=== PATIENT | male | born 1940 | race African-American/Black ===

== ENCOUNTER 2017-10-16 11:53 | Inpatient (IN) | payer MEDICARE ==
[~2017-10-16] VITALS: Ht 182.9 cm; Wt 81.6 kg
[2017-10-16] MEDS ORDERED: Sodium Chloride 500ML 500 ML IV ONE (12:03)
[2017-10-16 12:13] VITALS: BP 193/92
[2017-10-16 13:34] LABS: BASOPHILS % (AUTO) 2.3 % (0.0-2.0); EOSINOPHILS % (AUTO) 3.8 % (0.0-3.0); HEMATOCRIT 41.4 % (42.0-52.0); HEMOGLOBIN 13.8 G/DL (14.2-18.0); LYMPHOCYTES % (AUTO) 41.2 % (20.0-45.0); MEAN CORPUSCULAR VOLUME 92 FL (80-99); MONOCYTES % (AUTO) 7.8 % (1.0-10.0); NEUTROPHILS % (AUTO) 44.9 % (45.0-75.0); PLATELET COUNT 183 K/UL (150-450); RED BLOOD COUNT 4.51 M/UL (4.70-6.10); RED CELL DISTRIBUTION WIDTH 13.6 % (11.6-14.8); WHITE BLOOD COUNT 3.7 K/UL (4.8-10.8)
--- NOTE | 2017-10-16 13:35 | Diagnostic Imaging Report ---
Indication: Trauma, pain, status post fall Technique: spiral acquisitions obtained through the brain. Angled axial and coronal 5 x 5 mm slices were reconstructed. No IV contrast utilized. Radiation dose was minimized using automated exposure control Total dose length product 1400.72 mGycm. CTDIvol(s) 70.38 mGy Comparison: none FINDINGS: No acute hemorrhage or edema. No mass effect or midline shift. There is age-related enlargement of the ventricles and extra axial CSF spaces. There is periventricular deep white matter ischemic change. Normal toure-white differentiation. Visualized orbits are unremarkable. Visualized sinuses are unremarkable. Intact calvarium. IMPRESSION: Chronic and age-related changes. Negative for acute intracranial bleed or mass effect The CT scanner at [facility] is accredited by the [employer] and the scans are performed using protocols designed to limit radiation exposure to as low as reasonably achievable to attain images of sufficient resolution adequate for diagnostic evaluation
--- NOTE | 2017-10-16 13:39 | Diagnostic Imaging Report ---
Indication: Reason For Exam: SYNCOPE Technique: One view of the chest Comparison: Findings: Lungs and pleural spaces are clear. Heart size is normal . There are degenerative changes of the thoracic spine Impression: No acute process
--- NOTE | 2017-10-16 13:39 | Diagnostic Imaging Report ---
Indication: ,, Pain, status post fall Technique: Spiral acquisitions obtained through the cervical spine. No IV contrast utilized. Multiplanar reconstructions were generated. Total dose length product 313.49 mGycm. CTDIvol(s) 14.12 mGy. Dose reduction achieved using automated exposure control. Comparison: none Findings: There is slight straightening of the normal cervical lordosis. There is very slight posterior offset of C4 on C5 and C5 on C6. Otherwise normal bony alignment. No acute fractures. No dislocations. There is degenerative narrowing of the anterior atlantoaxial joint and proliferative changes of the posteriorly. At C3-4, posterior osteophytes result in significant narrowing of the spinal canal. There is mild right and severe left neural foraminal stenosis. At C4-5, posterior osteophytes result in narrowing of the spinal canal, at least moderate, particularly in the region of the right lateral recess. There is severe right and moderate to severe left neural foraminal stenosis. At C5-C6, posterior osteophytes result in mild narrowing the spinal canal. There is severe narrowing of the right neural foramen. At the remaining disc levels, no significant disc bulge or protrusion, spinal stenosis, or neural foraminal stenosis. The included extraspinal soft tissues demonstrate a bilateral subcentimeter lower pole thyroid nodules Impression: No acute bony trauma Extensive degenerative changes, as detailed above Bilateral lower pole subcentimeter thyroid nodules. No further follow-up necessary The CT scanner at [facility] is accredited by the [employer] and the scans are performed using protocols designed to limit radiation exposure to as low as reasonably achievable to attain images of sufficient resolution adequate for diagnostic evaluation.
[2017-10-16 13:57] LABS: ANION GAP 5 mmol/L (5-15); BLOOD UREA NITROGEN 19 mg/dL (7-18); CALCIUM 9.3 MG/DL (8.5-10.1); CARBON DIOXIDE 27 MMOL/L (21-32); CHLORIDE 106 MMOL/L (98-107); CREATININE 1.7 MG/DL (0.55-1.30); SODIUM 138 MMOL/L (136-145)
[2017-10-16 14:15] LABS: ALANINE AMINOTRANSFERASE 14 U/L (12-78); ALBUMIN 3.7 G/DL (3.4-5.0); ALKALINE PHOSPHATASE 55 U/L (46-116); ASPARTATE AMINO TRANSFERASE 18 U/L (15-37); BILIRUBIN,TOTAL 0.9 MG/DL (0.2-1.0); CKMB 6.3 NG/ML (0.0-3.6); CREATINE KINASE 207 U/L (26-308)
[2017-10-16 14:43] VITALS: BP 139/84
[2017-10-16 15:20] LABS: APPEARANCE,URINE CLEAR; BILIRUBIN, URINE NEGATIVE (NEGATIVE); COLOR,URINE PALE YELLOW; GLUCOSE, URINE (UA) NEGATIVE (NEGATIVE); KETONES,URINE 2+ (NEGATIVE); LEUKOCYTE ESTERASE ,URINE NEGATIVE (NEGATIVE); NITRITE,URINE NEGATIVE (NEGATIVE); PH,URINE 7 (4.5-8.0); PROTEIN,URINE 1+ (NEGATIVE); UROBILINOGEN,URINE NORMAL MG/DL (0.0-1.0)
[2017-10-16 19:00] VITALS: BP 138/93
[2017-10-16 20:04] VITALS: BP 138/93
[2017-10-16] MEDS: Heparin 5000 units/ml inj SUBQ SCH (21:42)
[2017-10-17] VITALS (8 sets, daily range): BP systolic 118–199; BP diastolic 67–103
--- NOTE | 2017-10-17 04:00 | History and Physical Report ---
DATE OF ADMISSION: 10/16/2017 REASON FOR ADMISSION: Syncope. HISTORY OF PRESENT ILLNESS: This is a 76-year-old male, admitted with syncopal episode. The patient was seen, evaluated, and was required admission. In the emergency room, the patient was admitted to telemetry after full evaluation. Troponin level was borderline elevated. The patient also noted renal impairment. The care discussed and reviewed. The patient denies any chest pain. Denies any radiation of pain. Denies any shortness of breath. The patient's events are fairly acute in nature. PAST MEDICAL HISTORY: Fairly benign overall. The patient's history reviewed. The patient does have a history of closed head injury. No other significant complaints at this time. The patient has no history of strokes and no history of cardiac disease. MEDICATIONS: Reviewed. ALLERGIES: Reviewed. SOCIAL HISTORY: Essentially negative. The patient is ambulatory and is independent. Currently, nonsmoker and nondrinker. REVIEW OF SYSTEMS: All 10 points reviewed and otherwise negative. PHYSICAL EXAMINATION: GENERAL: A well-developed male, comfortable, overall. VITAL SIGNS: Blood pressure 132/84, 74 14, 99% saturation, and temperature is 96.6. HEENT: Fairly negative. Extraocular muscles are intact. Oropharynx is moist. Pupils are equal. LUNGS: Lungs are clear. No rhonchi or wheezes. CARDIAC: Normal S1 and S2. Regular rate and rhythm without murmurs, rubs, or gallops. ABDOMEN: Soft, nontender, and nondistended. EXTREMITIES: No cyanosis, clubbing, or edema. NEUROLOGIC: Grossly nonfocal. Cranial nerves are essentially intact. LABORATORY DATA: Reviewed. BUN 19 and creatinine 1.7. Troponin 0.144. White cell count is 3.7, hematocrit 41, and platelets are 183,000. IMPRESSION: Syncope with essentially negative cervical spine CT, evidence of possible chronic renal insufficiency, negative head CT, and mild leukopenia. RECOMMENDATIONS: 1. Intravenous hydration. 2. Echo carotid. 3. Cardiac evaluation. 4. PT evaluation. 5. Aspirin daily. 6. Stabilize and monitor telemetry. 7. Serial troponins. 8. Discharge once cleared. Jorge Hammer M.D. DR: PAUL JOB#: [id number] CC: CHANI
--- NOTE | 2017-10-17 08:24 | General Progress Note ---
Assessment/Plan Assessment/Plan Syncope chronic renal insufficiency, mild leukopenia. RECOMMENDATIONS: 1. Intravenous hydration. 2. Echo carotid. pending 3. Cardiac evaluation. appreciated 4. PT evaluation. 5. Aspirin daily. 6. Stabilize and monitor telemetry. 7. Serial troponins. and check TSH 8. Discharge once cleared. impression, plan, and exam edited and reviewed in detail care discussed with RN Subjective Allergies: Coded Allergies: No Known Allergies (Unverified , 10/16/17) Subjective care noted and reviewed comfortable no distress tele noted Objective Last 24 Hour Vital Signs Date Time Temp Pulse Resp B/P (MAP) Pulse Ox O2 Delivery O2 Flow Rate FiO2 10/17/17 04:00 97.2 66 16 122/81 99 Room Air 10/17/17 04:00 59 10/17/17 00:00 71 10/17/17 00:00 97.2 60 18 120/76 99 Room Air 10/16/17 20:04 97.2 88 18 138/93 98 10/16/17 20:00 81 10/16/17 19:00 97.2 88 18 138/93 98 Room Air 10/16/17 16:00 87 10/16/17 14:55 97.6 99 16 139/84 98 Room Air 10/16/17 14:45 97.6 10/16/17 14:43 99 16 139/84 98 Room Air 10/16/17 14:08 183/108 10/16/17 12:13 64 16 193/92 98 Room Air 10/16/17 12:00 97.5 71 16 164/98 98 Room Air Intake and Output 10/16/17 10/17/17 19:00 07:00 Intake Total 150 ml 220 ml Output Total 400 ml Balance 150 ml -180 ml Intake Oral 150 ml 120 ml IV Total 100 ml Output Urine Total 400 ml # Voids 2 Laboratory Tests 10/16/17 12:41: White Blood Count 3.7L, Red Blood Count 4.51L, Hemoglobin 13.8L, Hematocrit 41.4L, Mean Corpuscular Volume 92, Mean Corpuscular Hemoglobin 30.7, Mean Corpuscular Hemoglobin Concent 33.4, Red Cell Distribution Width 13.6, Platelet Count 183, Mean Platelet Volume 7.3, Neutrophils (%) (Auto) 44.9L, Lymphocytes ( %) (Auto) 41.2, Monocytes (%) (Auto) 7.8, Eosinophils (%) (Auto) 3.8H, Basophils (%) (Auto) 2.3H, Sodium Level 138, Potassium Level 5.0, Chloride Level 106, Carbon Dioxide Level 27, Anion Gap 5, Blood Urea Nitrogen 19H, Creatinine 1.7H, Estimat Glomerular Filtration Rate , Glucose Level 136H, Calcium Level 9.3, Total Bilirubin 0.9, Aspartate Amino Transf (AST/SGOT) 18, Alanine Aminotransferase (ALT/SGPT) 14, Alkaline Phosphatase 55, Total Creatine Kinase 207, Creatine Kinase MB 6.3H, Creatine Kinase MB Relative Index 3.0, Troponin I 0.144H, Total Protein 7.4, Albumin 3.7, Globulin 3.7, Albumin/ Globulin Ratio 1.0, Lipase 53L 10/16/17 15:09: Urine Color Pale yellow, Urine Appearance Clear, Urine pH 7, Urine Specific [place] 1.010, Urine Protein 1+H, Urine Glucose (UA) Negative, Urine Ketones 2+H , Urine Occult Blood 2+H, Urine Nitrite Negative, Urine Bilirubin Negative, Urine Urobilinogen Normal, Urine Leukocyte Esterase Negative, Urine RBC 5-10H, Urine WBC 0-2, Urine Squamous Epithelial Cells None, Urine Bacteria None Height (Feet): 6 Height (Inches): 0.00 Weight (Pounds): 180 Objective WDWN NAD clear breath sounds bilaterally without rhonchi or wheeze [id number] without MRG NABS nontender no HSM no CCE nonfocal alert and oriented x 3 CLAUDIA FAULKNER Oct 17, 2017 08:24
[2017-10-17] MEDS: Aspirin EC 81mg tab ORAL SCH (09:22)
[2017-10-17] MEDS: Heparin 5000 units/ml inj SUBQ SCH ×2 (09:23→20:54)
[2017-10-17 09:58] LABS: BASOPHILS % (AUTO) 2.2 % (0.0-2.0); EOSINOPHILS % (AUTO) 3.5 % (0.0-3.0); HEMATOCRIT 38.3 % (42.0-52.0); HEMOGLOBIN 12.7 G/DL (14.2-18.0); LYMPHOCYTES % (AUTO) 41.3 % (20.0-45.0); MEAN CORPUSCULAR VOLUME 92 FL (80-99); MONOCYTES % (AUTO) 9.1 % (1.0-10.0); PLATELET COUNT 193 K/UL (150-450); RED BLOOD COUNT 4.15 M/UL (4.70-6.10); RED CELL DISTRIBUTION WIDTH 13.5 % (11.6-14.8); WHITE BLOOD COUNT 4.1 K/UL (4.8-10.8)
[2017-10-17 10:43] LABS: ALANINE AMINOTRANSFERASE 13 U/L (12-78); ALBUMIN 3.3 G/DL (3.4-5.0); ALBUMIN/GLOBULIN RATIO 1.1 (1.0-2.7); ALKALINE PHOSPHATASE 51 U/L (46-116); ANION GAP 7 mmol/L (5-15); ASPARTATE AMINO TRANSFERASE 20 U/L (15-37); BILIRUBIN,TOTAL 0.6 MG/DL (0.2-1.0); BLOOD UREA NITROGEN 20 mg/dL (7-18); CALCIUM 8.5 MG/DL (8.5-10.1); CARBON DIOXIDE 25 MMOL/L (21-32); CHLORIDE 105 MMOL/L (98-107); CREATININE 1.7 MG/DL (0.55-1.30); POTASSIUM 4.8 MMOL/L (3.5-5.1); SODIUM 137 MMOL/L (136-145)
--- NOTE | 2017-10-17 15:30 | Physician Query ---
--------- THIS DOCUMENT IS A PERMANENT PART OF THE MEDICAL RECORD --------- PLEASE COMPLETE THE DOCUMENT BEFORE SIGNING Dear CLAUDIA Batista Date: 10/17/17 Chicken Handler/CDS Name: Ashley Moore Chicken Handler / CDS Phone #[phone] Exercise your independent professional judgment when responding to query. Question asked do not imply a particular answer is desired/expected Clinical Documentation States: "Syncope" documented in H & P (10/17/17) Clinical Findings Show: VS: HR - 71, 64, 99, BP - 164/98, 193/92, 183/108 CT Head: Chronic and age-related changes. Negative for acute intracranial bleed or mass effect. Cervical CT: No acute bony trauma IV Hydration:Sodium Chloride 1000 ml Please specify the cause: [] Autonomic Imbalance [] Orthostatic Hypotension [] Shock [] Dehydration [] Dialysis Disequilibrium Syndrome [] Heat [] Other: [x] Unable to determine Condition Present on Admission: [] Yes [] No [x ]Clinically Undeterminable Please also document in your Progress Notes and/or Discharge Summary and indicate if the condition was present on admission. Dr. CLAUDIA FAULKNER Date/Time MTDD
[2017-10-17] MEDS ORDERED: 1/2 NS 1000ml IV ONE (16:33)
[2017-10-18] VITALS: BP 154/102
[2017-10-18] MEDS ORDERED: Docusate 100mg cap ORAL SCH (00:15)
--- NOTE | 2017-10-18 02:30 | Progress Note ---
DATE: 10/17/2017 CARDIOLOGY PROGRESS NOTE SUBJECTIVE: The patient has no dizziness. No loss of consciousness. Noted monitor with sinus rhythm and no significant ectopy. PHYSICAL EXAMINATION: VITAL SIGNS: Reviewed. Presently, blood pressure 122/81, heart rate 66, and respiratory rate 18. Per prior evaluations by nursing staff, he was mildly orthostatic. LUNGS: Clear. CARDIAC: Regular. ABDOMEN: Soft. EXTREMITIES: No edema. LABORATORY AND DIAGNOSTIC DATA: Troponin 0.144 and then 0.143. Chemistry panel notable for BUN 21 and creatinine 1.7. Normal TSH. IMPRESSION: 1. Near syncope. 2. Hypovolemia. 3. Acute myocardial ischemia. 4. Chronic kidney disease. Possible acute component. PLAN: 1. Continue hydration and anti-platelet therapy. 2. Await echocardiogram and cardiac duplex studies. 3. Follow up troponin level. 4. Lexiscan for assessment of coronary flow reserve to follow. Papo Dillard M.D. DR: MARCIO JOB#: [id number] CC:
[2017-10-18 04:00] VITALS: BP 138/86
[2017-10-18 05:42] LABS: ALANINE AMINOTRANSFERASE 14 U/L (12-78); ALBUMIN 3.4 G/DL (3.4-5.0); ALBUMIN/GLOBULIN RATIO 0.9 (1.0-2.7); ALKALINE PHOSPHATASE 56 U/L (46-116); ANION GAP 8 mmol/L (5-15); ASPARTATE AMINO TRANSFERASE 26 U/L (15-37); BILIRUBIN,TOTAL 0.8 MG/DL (0.2-1.0); BLOOD UREA NITROGEN 21 mg/dL (7-18); CALCIUM 8.8 MG/DL (8.5-10.1); CARBON DIOXIDE 26 MMOL/L (21-32); CHLORIDE 100 MMOL/L (98-107); CHOLESTEROL 203 MG/DL (< 200); CREATININE 1.6 MG/DL (0.55-1.30); HDL CHOLESTEROL 91 MG/DL (40-60); POTASSIUM 4.3 MMOL/L (3.5-5.1); SODIUM 133 MMOL/L (136-145); TRIGLYCERIDES 38 MG/DL (30-150)
--- NOTE | 2017-10-18 07:23 | Emergency Room Report ---
History of Present Illness General Chief Complaint: Syncope Source: Patient Present Illness HPI Patient was brought in with a syncopal episode Patient reports that he was walking Did not have any symptoms as far as lightheadedness or chest pain In the next thing he remembers is laying on the ground Patient complains of neck pain and headache Denies any vomiting or diarrhea Denies any recent illness Denies any chest pain denies any focal weakness Allergies: Coded Allergies: No Known Allergies (Unverified , 10/16/17) Patient History Past Medical History: see triage record Pertinent Family History: none Reviewed Nursing Documentation: PMH: Agreed, PSxH: Agreed Nursing Documentation-PM Past Medical History: No Stated History Hx Cardiac Problems: No Hx Cancer: No Hx Gastrointestinal Problems: No Hx Neurological Problems: Yes Hx Head Trauma: Yes - from fall Review of Systems All Other Systems: negative except mentioned in HPI Physical Exam Vital Signs Date Time Temp Pulse Resp B/P (MAP) Pulse Ox O2 Delivery O2 Flow Rate FiO2 10/16/17 12:00 97.5 71 16 164/98 98 Room Air Sp02 EP Interpretation: reviewed, normal General Appearance: no apparent distress Head: normocephalic, atraumatic Eyes: bilateral eye PERRL, bilateral eye EOMI ENT: hearing grossly normal, normal pharynx, TMs + canals normal, uvula midline Neck: full range of motion, no meningismus, no bony tend - However uncomfortable paraspinal C3-4-5 Respiratory: lungs clear, normal breath sounds, no rhonchi, no respiratory distress, no retraction, no accessory muscle use Cardiovascular #1: normal peripheral pulses, regular rate, rhythm, no edema, no gallop, no JVD, no murmur Gastrointestinal: normal bowel sounds, non tender, soft, no mass, no organomegaly, non-distended, no guarding, no hernia, no pulsatile mass, no rebound Genitourinary: no CVA tenderness Musculoskeletal: normal inspection Neurologic: oriented x3, responsive, can bander operator III-XII nml as tested, motor strength/ tone normal, sensory intact Psychiatric: mood/affect normal Skin: normal color, no rash, warm/dry, palpation normal Lymphatic: normal inspection, no adenopathy Medical Decision Making Diagnostic Impression: Primary Impression: Syncope Additional Impressions: Hypertensive urgency, malignant Elevated troponin ER Course Patient is a fairly complex patient with multiple differential to consideration including but not limited to cardiac cardiopulmonary and vascular emergencies Given the patient's headache and neck pain imaging study was also obtained no obvious acute pathology on CAT scan patient's kidney function is elevated troponin is also elevated at 0.14 Patient currently remains chest pain-free EKG does not show any ST elevation And patient requires further inpatient care Labs Test 10/16/17 12:41 10/16/17 15:09 10/17/17 07:40 10/18/17 04:50 White Blood Count 3.7 K/UL (4.8-10.8) 4.1 K/UL (4.8-10.8) Red Blood Count 4.51 M/UL (4.70-6.10) 4.15 M/UL (4.70-6.10) Hemoglobin 13.8 G/DL (14.2-18.0) 12.7 G/DL (14.2-18.0) Hematocrit 41.4 % (42.0-52.0) 38.3 % (42.0-52.0) Mean Corpuscular Volume 92 FL (80-99) 92 FL (80-99) Mean Corpuscular Hemoglobin 30.7 PG (27.0-31.0) 30.6 PG (27.0-31.0) Mean Corpuscular Hemoglobin Concent 33.4 G/DL (32.0-36.0) 33.2 G/DL (32.0-36.0) Red Cell Distribution Width 13.6 % (11.6-14.8) 13.5 % (11.6-14.8) Platelet Count 183 K/UL (150-450) 193 K/UL (150-450) Mean Platelet Volume 7.3 FL (6.5-10.1) 7.2 FL (6.5-10.1) Neutrophils (%) (Auto) 44.9 % (45.0-75.0) 44.0 % (45.0-75.0) Lymphocytes (%) (Auto) 41.2 % (20.0-45.0) 41.3 % (20.0-45.0) Monocytes (%) (Auto) 7.8 % (1.0-10.0) 9.1 % (1.0-10.0) Eosinophils (%) (Auto) 3.8 % (0.0-3.0) 3.5 % (0.0-3.0) Basophils (%) (Auto) 2.3 % (0.0-2.0) 2.2 % (0.0-2.0) Sodium Level 138 MMOL/L (136-145) 137 MMOL/L (136-145) 133 MMOL/L (136-145) Potassium Level 5.0 MMOL/L (3.5-5.1) 4.8 MMOL/L (3.5-5.1) 4.3 MMOL/L (3.5-5.1) Chloride Level 106 MMOL/L (98-107) 105 MMOL/L (98-107) 100 MMOL/L (98-107) Carbon Dioxide Level 27 MMOL/L (21-32) 25 MMOL/L (21-32) 26 MMOL/L (21-32) Anion Gap 5 mmol/L (5-15) 7 mmol/L (5-15) 8 mmol/L (5-15) Blood Urea Nitrogen 19 mg/dL (7-18) 20 mg/dL (7-18) 21 mg/dL (7-18) Creatinine 1.7 MG/DL (0.55-1.30) 1.7 MG/DL (0.55-1.30) 1.6 MG/DL (0.55-1.30) Estimat Glomerular Filtration Rate mL/min (>60) mL/min (>60) mL/min (>60) Glucose Level 136 MG/DL (74-106) 110 MG/DL (74-106) 254 MG/DL (74-106) Calcium Level 9.3 MG/DL (8.5-10.1) 8.5 MG/DL (8.5-10.1) 8.8 MG/DL (8.5-10.1) Total Bilirubin 0.9 MG/DL (0.2-1.0) 0.6 MG/DL (0.2-1.0) 0.8 MG/DL (0.2-1.0) Aspartate Amino Transf (AST/SGOT) 18 U/L (15-37) 20 U/L (15-37) 26 U/L (15-37) Alanine Aminotransferase (ALT/SGPT) 14 U/L (12-78) 13 U/L (12-78) 14 U/L (12-78) Alkaline Phosphatase 55 U/L (46-116) 51 U/L (46-116) 56 U/L (46-116) Total Creatine Kinase 207 U/L (26-308) Creatine Kinase MB 6.3 NG/ML (0.0-3.6) Creatine Kinase MB Relative Index 3.0 Troponin I 0.144 ng/mL (0.000-0.056) 0.143 ng/mL (0.000-0.056) Total Protein 7.4 G/DL (6.4-8.2) 6.4 G/DL (6.4-8.2) 7.1 G/DL (6.4-8.2) Albumin 3.7 G/DL (3.4-5.0) 3.3 G/DL (3.4-5.0) 3.4 G/DL (3.4-5.0) Globulin 3.7 g/dL 3.1 g/dL 3.7 g/dL Albumin/Globulin Ratio 1.0 (1.0-2.7) 1.1 (1.0-2.7) 0.9 (1.0-2.7) Lipase 53 U/L (73-393) Urine Color Pale yellow Urine Appearance Clear Urine pH 7 (4.5-8.0) Urine Specific [place] 1.010 (1.005-1.035) Urine Protein 1+ (NEGATIVE) Urine Glucose (UA) Negative (NEGATIVE) Urine Ketones 2+ (NEGATIVE) Urine Occult Blood 2+ (NEGATIVE) Urine Nitrite Negative (NEGATIVE) Urine Bilirubin Negative (NEGATIVE) Urine Urobilinogen Normal MG/DL (0.0-1.0) Urine Leukocyte Esterase Negative (NEGATIVE) Urine RBC 5-10 /HPF (0 - 0) Urine WBC 0-2 /HPF (0 - 0) Urine Squamous Epithelial Cells None /LPF (NONE/OCC) Urine Bacteria None /HPF (NONE) Thyroid Stimulating Hormone (TSH) 1.397 uiU/mL (0.358-3.740) Magnesium Level 1.7 MG/DL (1.8-2.4) Triglycerides Level 38 MG/DL (30-150) Cholesterol Level 203 MG/DL (< 200) LDL Cholesterol 106 mg/dL (<100) HDL Cholesterol 91 MG/DL (40-60) Cholesterol/HDL Ratio 2.2 (3.3-4.4) EKG Diagnostic Results Rate: normal Rhythm: NSR ST Segments: other - nonspecific ST and T-wave changes Rhythm Strip Diag. Results EP Interpretation: yes Rate: 87 Rhythm: NSR, no PVC's, no ectopy Chest X-Ray Diagnostic Results Chest X-Ray Diagnostic Results : Chest X-Ray Ordered: Yes # of Views/Limited/Complete: 1 View Indication: Chest Pain EP Interpretation: Yes Interpretation: no consolidation, no effusion, no pneumothorax, no acute cardiopulmonary disease Impression: No acute disease Electronically Signed by: Carlos Faye, DO CT/MRI/US Diagnostic Results CT/MRI/US Diagnostic Results : Impression CT head no acute disease CT C-spine no acute disease Last Vital Signs Date Time Temp Pulse Resp B/P (MAP) Pulse Ox O2 Delivery O2 Flow Rate FiO2 10/18/17 04:00 86 10/18/17 04:00 98.0 18 138/86 96 10/17/17 20:00 Room Air Status: improved Disposition: ADMITTED INPATIENT Condition: Serious Scripts No Active Prescriptions or Reported Meds Referrals: NOT CHOSEN IPA/,REFERRING (PCP) CARLOS FAYE D.O. Oct 18, 2017 07:23
[2017-10-18 08:00] VITALS: BP 129/78
[2017-10-18] MEDS: Aspirin EC 81mg tab ORAL SCH (08:14)
[2017-10-18] MEDS: Heparin 5000 units/ml inj SUBQ SCH ×2 (08:16→21:11)
--- NOTE | 2017-10-18 08:36 | General Progress Note ---
Assessment/Plan Assessment/Plan Syncope chronic renal insufficiency, mild leukopenia. RECOMMENDATIONS: 1. Intravenous hydration. 2. Echo carotid. 3. Cardiac evaluation. appreciated 4. PT evaluation. 5. Aspirin daily. 6. Stabilize and monitor telemetry. 7. Serial troponins. and check TSH 8. Lexiscan. impression, plan, and exam edited and reviewed in detail care discussed with RN Subjective Allergies: Coded Allergies: No Known Allergies (Unverified , 10/16/17) Subjective care noted and reviewed cards noted no distress tele noted Objective Last 24 Hour Vital Signs Date Time Temp Pulse Resp B/P (MAP) Pulse Ox O2 Delivery O2 Flow Rate FiO2 10/18/17 04:00 86 10/18/17 04:00 98.0 88 18 138/86 96 10/18/17 00:00 99 10/18/17 00:00 97.6 80 20 154/102 99 10/17/17 22:00 147/89 10/17/17 21:00 165/103 10/17/17 20:22 200/187 10/17/17 20:00 98.0 89 19 199/102 98 Room Air 10/17/17 20:00 89 10/17/17 16:00 65 10/17/17 16:00 97.2 84 20 118/67 98 Room Air 10/17/17 12:00 97.5 68 18 156/87 99 Room Air Intake and Output 10/17/17 10/18/17 19:00 07:00 Intake Total 480 ml 700 ml Output Total 500 ml Balance -20 ml 700 ml Intake Oral 480 ml IV Total 700 ml Output Urine Total 500 ml # Voids 4 Laboratory Tests 10/18/17 04:50: Sodium Level 133L, Potassium Level 4.3, Chloride Level 100, Carbon Dioxide Level 26, Anion Gap 8, Blood Urea Nitrogen 21H, Creatinine 1.6H, Estimat Glomerular Filtration Rate , Glucose Level 254#H, Calcium Level 8.8, Magnesium Level 1.7L, Total Bilirubin 0.8, Aspartate Amino Transf (AST/SGOT) 26, Alanine Aminotransferase (ALT/SGPT) 14, Alkaline Phosphatase 56, Total Protein 7.1, Albumin 3.4, Globulin 3.7, Albumin/Globulin Ratio 0.9L, Triglycerides Level 38, Cholesterol Level 203H, LDL Cholesterol 106H, HDL Cholesterol 91H, Cholesterol/ HDL Ratio 2.2L Height (Feet): 6 Height (Inches): 0.00 Weight (Pounds): 180 Objective WDWN NAD clear breath sounds bilaterally without rhonchi or wheeze [id number] without MRG NABS nontender no HSM no CCE nonfocal alert and oriented x 3 CLAUDIA FAULKNER Oct 18, 2017 08:36
[2017-10-18 12:00] VITALS: BP 155/95
[2017-10-18] MEDS ORDERED: Lexiscan 0.4mg/5ml syringe IV SCH (12:00)
--- NOTE | 2017-10-18 15:03 | Cardiology Report ---
APPROVED REPORT EXAM: Two-dimensional and M-mode echocardiogram with Doppler and color Doppler. INDICATION Syncope Technically difficult study due to poor acoustical windows . Normal left ventricular chamber size, systolic function to extent visualized. This study precludes analysis of regional wall motion. Left ventricular ejection fraction estimated to be 60-65 %. No evidence of left ventricular hypertrophy. No evidence of pericardial effusion . Focal aortic valve sclerosis with adequate cusp excursion. Thickened mitral valve leaflets with normal excursion. Mitral annulus and aortic root calcification. Pulmonic valve not well visualized. tricuspid valve not well visualized . Apical views are not obtained . Normal left ventricular diastolic function . Mitral diastolic velocities suggest reduced left ventricular relaxation c/w mild LV diastolic dysfunction (Grade I )
--- NOTE | 2017-10-18 15:19 | Cardiology Report ---
APPROVED REPORT EKG Measurement Heart [id number] Sinus rhythm with 1st degree AV block Septal infarct, age undetermined Cannot rule out Inferior infarct, age undetermined Abnormal ECG
[2017-10-18 16:00] VITALS: BP 122/68
[2017-10-18] MEDS ORDERED: 1/2 NS 1000ml IV ONE (16:37)
[2017-10-18 20:00] VITALS: BP 144/85
[2017-10-19] VITALS: BP 143/88
--- NOTE | 2017-10-19 03:30 | Progress Note ---
DATE: 10/18/2017 CARDIOLOGY PROGRESS NOTE SUBJECTIVE: The patient has no loss of consciousness. Denies chest pain or shortness of breath. He is confused at times. OBJECTIVE: VITAL SIGNS: Blood pressure of 138/86, pulse 88, respirations 18, afebrile, and blood pressure max is up to 165/103. LUNGS: Good breath sounds. No rales or wheezing. CARDIAC: Regular rhythm and rate. Normal S1, S2 with a fourth heart sound. ABDOMEN: Soft. EXTREMITIES: Without edema. LABORATORY DATA: Sodium 133, potassium 4.3, BUN 21, and creatinine 1.6. LDL is 106, but HDL is 91. Glucose is elevated at 254. Magnesium 1.7. IMPRESSION: 1. Near syncope. 2. Hypertensive heart disease with accelerating blood pressure. 3. Chronic kidney disease. 4. Dilutional hyponatremia. 5. Hypomagnesemia. 6. lipid panel due to elevated HDL. PLAN: 1. Continue anti-platelet therapy. 2. Await Lexiscan. 3. Followup results of 2D echo and carotid duplex study. 4. IV magnesium replacement. 5. Discontinue intravenous fluids. Papo Dillard M.D. DR: LUIS JOB#: [id number] CC:
--- NOTE | 2017-10-19 03:45 | Consultation ---
DATE OF CONSULTATION: 10/16/2017 CARDIOLOGY CONSULTATION This is a late entry. CONSULTING PHYSICIAN: Papo Dillard M.D. REQUESTING PHYSICIAN: Jorge Hammer M.D. HISTORY OF PRESENT ILLNESS: The patient was walking and notes that he felt lightheaded and fell to the ground, although he denies losing consciousness completely. He notes some neck pain and headache, but has no signs of bleeding. He denied associated chest pain or shortness of breath. No palpitation. In the emergency room, his initial blood pressure was 164/98, heart rate 71, respiratory rate 16, and he is afebrile. PAST MEDICAL HISTORY: Denies hypertension, diabetes mellitus, or asthma. ALLERGIES: None. MEDICATIONS: Prior to admission, none. SOCIAL HISTORY: Negative for smoking, alcohol, or substance abuse. REVIEW OF SYSTEMS: A 10-point review of systems performed, all systems negative. PHYSICAL EXAMINATION: GENERAL: The patient is well developed, well nourished. VITAL SIGNS: Blood pressure 132/84, pulse 74, respirations 14, and afebrile. HEENT: Conjunctivae pink. Oropharynx clear. NECK: Supple. Jugular venous pressure normal. LUNGS: Clear. Carotid upstrokes without delay. No bruits. CARDIAC: Regular rhythm and rate. Normal S1, S2 with a fourth heart sound. ABDOMEN: Soft, nontender. EXTREMITIES: No edema. NEUROLOGIC: Nonfocal. LABORATORY AND DIAGNOSTIC DATA: BUN 19, creatinine 1.7. Troponin is 0.144. White count 3.7, hematocrit 41. CT cervical spine negative. EKG, sinus rhythm with first-degree AV block and possible septal infarction of indeterminate age as well as possible inferior infarction of indeterminate age. IMPRESSIONS: 1. Near syncope. 2. Hypertensive heart disease. 3. Chronic kidney disease, rule out acute component. PLAN: 1. Cautious hydration. 2. Cardiac monitoring. 3. Check thyroid panel. 4. Serial troponin levels. 5. Carotid duplex study. 6. Echocardiogram. 7. Anti-platelet therapy. Papo Dillard M.D. DR: LUIS JOB#: [id number] CC:
[2017-10-19 04:00] VITALS: BP 110/74
--- NOTE | 2017-10-19 07:52 | General Progress Note ---
Assessment/Plan Assessment/Plan Syncope chronic renal insufficiency, mild leukopenia. RECOMMENDATIONS: 1. Intravenous hydration. 2. Echo carotid. noted 3. Cardiac evaluation. appreciated 4. PT evaluation. 5. Aspirin daily. 6. continue to monitor telemetry. 7. negative troponins 8. Lexiscan. today impression, plan, and exam edited and reviewed in detail care discussed with RN Subjective Allergies: Coded Allergies: No Known Allergies (Unverified , 10/16/17) Subjective care noted and reviewed cards noted no distress tele noted echo noted Objective Last 24 Hour Vital Signs Date Time Temp Pulse Resp B/P (MAP) Pulse Ox O2 Delivery O2 Flow Rate FiO2 10/19/17 04:00 98.0 61 18 110/74 99 10/19/17 04:00 73 10/19/17 00:00 97.8 69 18 143/88 99 10/19/17 00:00 66 10/18/17 20:00 68 10/18/17 20:00 98.1 77 20 144/85 98 10/18/17 16:00 97.7 70 18 122/68 98 10/18/17 16:00 71 10/18/17 12:00 97.0 72 18 155/95 98 10/18/17 12:00 77 10/18/17 08:00 73 10/18/17 08:00 97.2 77 18 129/78 95 Intake and Output 10/18/17 10/19/17 19:00 07:00 Intake Total 700 ml Output Total 600 ml Balance 700 ml -600 ml IV Total 700 ml Output Urine Total 600 ml # Voids 4 Height (Feet): 6 Height (Inches): 0.00 Weight (Pounds): 180 Objective WDWN NAD clear breath sounds bilaterally without rhonchi or wheeze [id number] without MRG NABS nontender no HSM no CCE nonfocal alert and oriented x 3 CLAUDIA FAULKNER Oct 19, 2017 07:52
[2017-10-19 08:00] VITALS: BP 152/73
[2017-10-19 09:18] LABS: BASOPHILS % (AUTO) 0.4 % (0.0-2.0); HEMATOCRIT 39.1 % (42.0-52.0); HEMOGLOBIN 13.5 G/DL (14.2-18.0); LYMPHOCYTES % (AUTO) 10.1 % (20.0-45.0); MEAN CORPUSCULAR VOLUME 90 FL (80-99); MONOCYTES % (AUTO) 4.3 % (1.0-10.0); NEUTROPHILS % (AUTO) 84.1 % (45.0-75.0); PLATELET COUNT 170 K/UL (150-450); RED BLOOD COUNT 4.37 M/UL (4.70-6.10); RED CELL DISTRIBUTION WIDTH 13.6 % (11.6-14.8); WHITE BLOOD COUNT 14.8 K/UL (4.8-10.8)
[2017-10-19] MEDS: Aspirin EC 81mg tab ORAL SCH (09:36)
[2017-10-19] MEDS: Heparin 5000 units/ml inj SUBQ SCH ×2 (09:40→21:28)
[2017-10-19 09:43] LABS: ALANINE AMINOTRANSFERASE 14 U/L (12-78); ALBUMIN/GLOBULIN RATIO 0.9 (1.0-2.7); ALKALINE PHOSPHATASE 54 U/L (46-116); ANION GAP 8 mmol/L (5-15); ASPARTATE AMINO TRANSFERASE 22 U/L (15-37); BLOOD UREA NITROGEN 18 mg/dL (7-18); CALCIUM 8.6 MG/DL (8.5-10.1); CARBON DIOXIDE 25 MMOL/L (21-32); CHLORIDE 103 MMOL/L (98-107); CREATININE 1.5 MG/DL (0.55-1.30); POTASSIUM 4.2 MMOL/L (3.5-5.1); SODIUM 136 MMOL/L (136-145)
[2017-10-19 12:00] VITALS: BP 160/92
[2017-10-19 16:00] VITALS: BP 119/73
--- NOTE | 2017-10-19 17:01 | Diagnostic Imaging Report ---
Indication: chest pain Technique: The study was conducted under the supervision of a credit risk analytics manager. lexiscan (regadenoson) infusion over 10 seconds followed by intravenous administration of 31.1 mCi of technetium 99m Myoview was performed. Three plane SPECT imaging of the heart was then performed. A resting study was performed as part of the one-day protocol with 10.5 mCi of technetium 99m myoview injected intravenously at that time. Three plane SPECT imaging of the heart was obtained. Comparison: None Clinical data: 1. Clinical response: Non ischemic 2. Electrocardiographic response: Non ischemic Findings: The myocardial perfusion scan demonstrates no fixed or reversible perfusion defects. LVEF is 69%. IMPRESSION: Negative myocardial perfusion scan
--- NOTE | 2017-10-19 19:32 | Cardiology Report ---
APPROVED REPORT EKG Measurement Heart [id number] Sinus rhythm with 1st degree AV block Septal infarct, age undetermined Abnormal ECG
[2017-10-19 20:00] VITALS: BP 129/80
--- NOTE | 2017-10-19 23:00 | Consultation ---
DATE OF CONSULTATION: 10/19/2017 HISTORY OF PRESENT ILLNESS: This is a 76-year-old male who has dementia with syncopal episodes. He is coming from home. During evaluation, the patient was confused. He was unable to have any logical conversation. He was unable to provide any history. He only knows his name, however, he is unable to answer the questions and unable to understand, process, communicate, or appreciate information given to him in regards to medical condition. He has poor insight and judgment into his mental condition due to severe cognitive impairment. The patient has not been having waxing and waning consciousness. It appears that he has cognitive impairment due to most likely dementia, Alzheimer's. PAST PSYCHIATRIC HISTORY: Unknown. The patient is unable to provide any meaningful information. PAST MEDICAL HISTORY: Significant for closed head injury. Unknown history of stroke or cardiac disease. ALLERGIES: No known drug allergies. SUBSTANCE ABUSE HISTORY: No known history of illicit drug use or alcohol. SOCIAL HISTORY: The patient lives at home. MENTAL STATUS EXAMINATION: The patient is alert and oriented times self, confused, and disoriented. Mood is neutral. Affect is flat. Thought process, there is a paucity of thought content. Thought content, no suicidal or homicidal ideations. ASSESSMENT: [place] I Cognitive impairment. [place] II Deferred. [place] III Head trauma. [place] IV Low. [place] V Global assessment of functioning is 20. PLAN: The patient lacks capacity to make decisions. The patient may not be discharged back home. He needs placement at SNF as he is unable to care for self due to cognitive impairment. No medication at this time and he is following the commands and is cooperative. Yovanny Jacobo M.D. DR: BHAVIK JOB#: [id number] CC:
[2017-10-20] VITALS (8 sets, daily range): BP systolic 113–158; BP diastolic 69–90
--- NOTE | 2017-10-20 03:30 | Progress Note ---
DATE: 10/19/2017 CARDIOLOGY PROGRESS NOTE SUBJECTIVE: The patient has no chest pain, shortness of breath, nausea, vomiting, or diarrhea. OBJECTIVE: VITAL SIGNS: Blood pressure 137/83, pulse 72, respiratory rate 18. NECK: Supple. LUNGS: Clear. CARDIAC: Regular. Normal S1, S2 with a fourth heart sound. ABDOMEN: Soft. EXTREMITIES: No edema. DIAGNOSTIC DATA: Myocardial perfusion scan is normal with no defects and normal ejection fraction of 69%. IMPRESSION: 1. Near syncope, possibly vasovagally mediated. 2. Pseudoinfarct pattern on baseline electrocardiogram with no signs of acute coronary insufficiency or prior infarctions by myocardial perfusion scan. 3. Hypertensive heart disease with labile blood pressure, possibly contributing to near syncope. PLAN: 1. Optimize antihypertensive. 2. Avoid orthostasis. 3. Continue anti-platelet and anti-lipid drugs. 4. No additional cardiovascular workup plan. 5. Outpatient followup recommended. Papo Dillard M.D. DR: Eder JOB#: [id number] CC:
[2017-10-20] MEDS: Aspirin EC 81mg tab ORAL SCH (08:29)
[2017-10-20] MEDS: Heparin 5000 units/ml inj SUBQ SCH ×2 (08:31→21:17)
[2017-10-20] MEDS ORDERED: NS 500ML ONE (11:21)
--- NOTE | 2017-10-20 12:45 | General Progress Note ---
Assessment/Plan Assessment/Plan Syncope chronic renal insufficiency, leukocytosis concern for underlying infection negative lexiscan RECOMMENDATIONS: neuro evaluation head ct urine culture repeat cbc will need snf psych appreciated impression, plan, and exam edited and reviewed in detail care discussed with RN Subjective Allergies: Coded Allergies: No Known Allergies (Unverified , 10/16/17) Subjective care noted and reviewed cards noted more confused d/w psych, not cognitively intact Objective Last 24 Hour Vital Signs Date Time Temp Pulse Resp B/P (MAP) Pulse Ox O2 Delivery O2 Flow Rate FiO2 10/20/17 12:04 97.2 71 21 113/69 97 Room Air 71 10/20/17 08:29 69 129/74 10/20/17 08:00 98.2 69 20 129/74 100 10/20/17 08:00 69 10/20/17 04:00 66 10/20/17 04:00 97.7 72 20 147/76 96 10/20/17 00:00 98.0 72 18 137/83 96 10/19/17 20:00 64 10/19/17 20:00 97.0 65 20 129/80 97 10/19/17 16:00 98.0 71 21 119/73 98 10/19/17 16:00 90 10/19/17 12:55 173/101 Intake and Output 10/19/17 10/20/17 19:00 07:00 Intake Total 236 ml Output Total 200 ml 850 ml Balance 36 ml -850 ml Intake Oral 236 ml Output Urine Total 200 ml 850 ml # Voids 1 3 Labs Test 10/18/17 04:50 10/19/17 07:10 Sodium Level 133 MMOL/L (136-145) 136 MMOL/L (136-145) Potassium Level 4.3 MMOL/L (3.5-5.1) 4.2 MMOL/L (3.5-5.1) Chloride Level 100 MMOL/L (98-107) 103 MMOL/L (98-107) Carbon Dioxide Level 26 MMOL/L (21-32) 25 MMOL/L (21-32) Anion Gap 8 mmol/L (5-15) 8 mmol/L (5-15) Blood Urea Nitrogen 21 mg/dL (7-18) 18 mg/dL (7-18) Creatinine 1.6 MG/DL (0.55-1.30) 1.5 MG/DL (0.55-1.30) Estimat Glomerular Filtration Rate mL/min (>60) mL/min (>60) Glucose Level 254 MG/DL (74-106) 157 MG/DL (74-106) Calcium Level 8.8 MG/DL (8.5-10.1) 8.6 MG/DL (8.5-10.1) Magnesium Level 1.7 MG/DL (1.8-2.4) Total Bilirubin 0.8 MG/DL (0.2-1.0) 1.0 MG/DL (0.2-1.0) Aspartate Amino Transf (AST/SGOT) 26 U/L (15-37) 22 U/L (15-37) Alanine Aminotransferase (ALT/SGPT) 14 U/L (12-78) 14 U/L (12-78) Alkaline Phosphatase 56 U/L (46-116) 54 U/L (46-116) Total Protein 7.1 G/DL (6.4-8.2) 6.3 G/DL (6.4-8.2) Albumin 3.4 G/DL (3.4-5.0) 3.0 G/DL (3.4-5.0) Globulin 3.7 g/dL 3.3 g/dL Albumin/Globulin Ratio 0.9 (1.0-2.7) 0.9 (1.0-2.7) Triglycerides Level 38 MG/DL (30-150) Cholesterol Level 203 MG/DL (< 200) LDL Cholesterol 106 mg/dL (<100) HDL Cholesterol 91 MG/DL (40-60) Cholesterol/HDL Ratio 2.2 (3.3-4.4) White Blood Count 14.8 K/UL (4.8-10.8) Red Blood Count 4.37 M/UL (4.70-6.10) Hemoglobin 13.5 G/DL (14.2-18.0) Hematocrit 39.1 % (42.0-52.0) Mean Corpuscular Volume 90 FL (80-99) Mean Corpuscular Hemoglobin 30.8 PG (27.0-31.0) Mean Corpuscular Hemoglobin Concent 34.4 G/DL (32.0-36.0) Red Cell Distribution Width 13.6 % (11.6-14.8) Platelet Count 170 K/UL (150-450) Mean Platelet Volume 7.1 FL (6.5-10.1) Neutrophils (%) (Auto) 84.1 % (45.0-75.0) Lymphocytes (%) (Auto) 10.1 % (20.0-45.0) Monocytes (%) (Auto) 4.3 % (1.0-10.0) Eosinophils (%) (Auto) 1.0 % (0.0-3.0) Basophils (%) (Auto) 0.4 % (0.0-2.0) Troponin I 0.139 ng/mL (0.000-0.056) Height (Feet): 6 Height (Inches): 0.00 Weight (Pounds): 180 Objective WDWN NAD clear breath sounds bilaterally without rhonchi or wheeze [id number] without MRG NABS nontender no HSM no CCE nonfocal more confused CLAUDIA FAULKNER Oct 20, 2017 12:45
--- NOTE | 2017-10-20 13:19 | Neurology Progress Note ---
Objective Physical Exam Last Vital Signs Date Time Temp Pulse Resp B/P (MAP) Pulse Ox O2 Delivery O2 Flow Rate FiO2 10/20/17 12:04 97.2 71 21 113/69 97 Room Air 71 Impression/Recommendations Problems: (1) Dementia arising in the senium and presenium (2) Blunt head trauma (3) Syncope Status: stable Recommendations # [id number] TAE MAYORGA Oct 20, 2017 13:19
[2017-10-20] MEDS ORDERED: DiphenhydrAMINE 50mg/ml Inj IM PRN (13:45)
[2017-10-20] MEDS ORDERED: LORazepam Inj 2mg/ml 1ml IM ONE (13:45)
[2017-10-20] MEDS ORDERED: Haloperidol 5mg/ml Inj IM ONE (13:45)
[2017-10-20 14:02] LABS: BASOPHILS % (AUTO) 0.7 % (0.0-2.0); EOSINOPHILS % (AUTO) 0.6 % (0.0-3.0); HEMATOCRIT 41.2 % (42.0-52.0); HEMOGLOBIN 13.6 G/DL (14.2-18.0); LYMPHOCYTES % (AUTO) 11.3 % (20.0-45.0); MEAN CORPUSCULAR VOLUME 91 FL (80-99); MONOCYTES % (AUTO) 3.9 % (1.0-10.0); NEUTROPHILS % (AUTO) 83.6 % (45.0-75.0); PLATELET COUNT 202 K/UL (150-450); RED BLOOD COUNT 4.52 M/UL (4.70-6.10); RED CELL DISTRIBUTION WIDTH 13.8 % (11.6-14.8); WHITE BLOOD COUNT 13.5 K/UL (4.8-10.8)
--- NOTE | 2017-10-20 15:17 | Diagnostic Imaging Report ---
Indication: Headache Technique: Contiguous 5 mm thick transaxial imaging of the head obtained in a Siemens Sensation [address] scanner. Soft tissue and bone windows generated. Automatic Exposure Control was utilized. Total Dose length Product (DLP): 1305.[address] Dose Index Volume (CTDIvol): 70.38 mGy Comparison: 10/16/2017 Findings: There is mild prominence of the ventricles, basal cisterns, and cerebral sulci consistent with atrophy. Mild, nonspecific, white matter hypoattenuation is noted throughout the brain consistent with chronic small vessel disease. There is no midline shift, edema, acute hemorrhage, mass effect, or abnormal extra-axial fluid collections. Bones and extra osseous soft tissues are unremarkable. Impression: No acute intracranial bleed, mass effect or edema. Mild atrophy of the brain. Nonspecific white matter hypoattenuation probably due to chronic small vessel disease. The CT scanner at [facility] is accredited by the [employer] and the scans are performed using dose optimization techniques as appropriate to a performed exam including Automatic Exposure control.
--- NOTE | 2017-10-20 18:30 | Consultation ---
DATE OF CONSULTATION: 10/20/2017 NEUROLOGICAL CONSULTATION CONSULTING PHYSICIAN: Asher Anglin M.D. REQUESTING PHYSICIAN: Jorge Hammer M.D. HISTORY OF PRESENT ILLNESS: This is a 76-year-old man seen in neurological consultation to evaluate persistent changes in mental status, confusion, disorientation and abnormal behavior. The patient was brought to this facility after having an episode of transient loss of consciousness, presumably a syncopal episode. Paramedics were called to the scene. The patient was indicating that he just blacked out. He complained of a pain in his occipital region. There is evidence of confusion in the occipital region, but there is no neurological deficit and his vital signs in the field were stable, blood pressure 150/90, heart rate of 92, and respirations 18. The patient was brought to this facility for further assessment. His initial CAT scan of the brain revealed age-related enlargement of ventricles, periventricular deep white matter ischemic changes. CT scan of the cervical spine revealed presence of multilevel degenerative joint disease with extensive degenerative changes. No cord compression. No fracture. No dislocation. His chest x-ray, no acute disease. Lab work was obtained with the CBC study revealing hemoglobin 13.9 and hematocrit 41.4. Urinalysis, 2+ ketones and 1+ protein. Chemistry panel on admission included BUN of 19, creatinine 1.7 and glucose 136. Elevated troponin 0.144. Normal TSH, but elevated LDL at 106. Blood sugar fluctuating up to 154. His BUN and creatinine remained elevated at 21 and 1.6 respectively. Since admission till present, vital signs remained stable. The patient described as with inappropriate behavior, he was refusing to eat, he was insistent on going home. He required placement with a sitter. In the presence of head trauma and metabolic derangement, neurology consult was requested. The patient's workup in the hospital also included a 2D echocardiogram, ejection fraction of 60% to 65%. EKG, sinus rhythm with a first-degree AV block. PAST MEDICAL HISTORY: The patient indicated he has no major medical problems. MEDICATIONS: He denies taking any medications. ALLERGIES: None reported. SOCIAL HISTORY: Reportedly lives in an apartment. He is reported to be single, although the patient has no proper recollection of such event. REVIEW OF SYMPTOMS: The patient indicated that he is feeling well. He would like to go home. Denying headache or dizziness. No chest pain. No palpitations. No respiratory problems. Denies abdominal pain or discomfort. Indicating he does not like food and that is why he does not eat. PHYSICAL EXAMINATION: GENERAL: A well-developed, somewhat cachectic, disheveled man, not in acute distress. He is now in outside dress. Trying to get out. Security people were called to hold him up. VITAL SIGNS: His vital signs remained stable, blood pressure 133/80 and respirations 14. HEAD: Head, normocephalic. Status post occipital area bruise. MUSCULOSKELETAL: Peripheral pulses 1+ and symmetric. MENTAL STATUS: He is alert, oriented to his name, but not age. Unable to give the proper place, location. Unable to give his address. 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 He followed simple commands, although reluctantly. CRANIAL NERVES II: Pupils both responding to light and accommodation. Extraocular movements full range. CRANIAL NERVES V: Normal corneal responses. CRANIAL NERVES VII: No facial asymmetry. CRANIAL NERVES VIII: Slight decrease in hearing. CRANIAL NERVES IX THROUGH XII: Tongue I s in midline. Symmetric palate elevation. MOTOR EXAMINATION: Normal muscle tone. Strength 5/5 in all extremities. No involuntary movement. Deep tendon reflexes 1+ and symmetric with downgoing toes on both sides. SENSORY EXAM: Normal to pinprick light touch. Gait is stable. IMPRESSION: 1. Status post blunt head trauma with cerebral concussion. 2. Dementia, confusion, abnormal behavior. Rule out senile dementia versus multi-infarct dementia. 3. Chronic renal insufficiency. 4. History of syncopal episode. 5. Hypertension. RECOMMENDATION: The patient displays very inappropriate behavior based on cognitive loss. He presents with a paranoid ideation, confusion, disorientation. He should be placed to a supervised environment due to significant cognitive impairment. The patient to continue with treatment including aspirin 81 mg daily, start on antipsychotic treatment, and Aricept 5 mg daily. Psychiatry followup for proper placement. Thank you for allowing me to see this interesting patient in neurological consultation. Asher Anglin M.D. DR: NIECY JOB#: [id number] CC:
[2017-10-21] VITALS (8 sets, daily range): BP systolic 109–168; BP diastolic 63–92
--- NOTE | 2017-10-21 04:15 | Progress Note ---
DATE: 10/20/2017 SUBJECTIVE: The patient is increasingly confused. Psychiatric input noted. Neurology consultation appreciated. OBJECTIVE: VITAL SIGNS: Blood pressure 113/69, heart rate 71, and respiratory rate 21. Monitor, sinus rhythm. LUNGS: Clear. CARDIAC: Regular. Normal S1 and S2. ABDOMEN: Soft. EXTREMITIES: No edema. DIAGNOSTIC DATA: Lexiscan as described yesterday was negative for any reversible ischemia. IMPRESSION: 1. Concussion due to blunt head trauma. 2. Syncope, likely vasovagally mediated. 3. Hypovolemia and dehydration, corrected. 4. Leukocytosis with possible underlying infection. PLAN: 1. Maintain anti-platelet therapy. 2. No additional cardiovascular workup. 3. Agree with rehabilitation stay. Papo Dillard M.D. DR: NOEMY JOB#: [id number] CC:
[2017-10-21] MEDS: Heparin 5000 units/ml inj SUBQ SCH (09:00)
[2017-10-21] MEDS ORDERED: Aspirin EC 81mg tab ORAL SCH (09:00)
--- NOTE | 2017-10-21 15:12 | General Progress Note ---
Assessment/Plan Assessment/Plan Syncope chronic renal insufficiency, leukocytosis concern for underlying infection negative lexiscan RECOMMENDATIONS: neuro evaluation noted head ct negative urine culture- negative so far repeat cbc- with minimally elevated wbc will need snf psych appreciated dc to snf today impression, plan, and exam edited and reviewed in detail care discussed with RN Subjective Allergies: Coded Allergies: No Known Allergies (Unverified , 10/16/17) Subjective care noted and reviewed cards noted very confused d/w psych, not cognitively intact family want snf Objective Last 24 Hour Vital Signs Date Time Temp Pulse Resp B/P (MAP) Pulse Ox O2 Delivery O2 Flow Rate FiO2 10/21/17 11:30 98.1 65 18 139/79 98 Room Air 10/21/17 10:01 98.6 78 18 109/63 98 Room Air 10/21/17 09:56 98.6 78 17 109/63 98 Room Air 10/21/17 09:45 98.6 78 18 109/63 98 Room Air 10/21/17 09:00 78 109/63 10/21/17 08:15 98.6 78 18 109/63 Room Air 10/21/17 06:49 168/92 10/21/17 04:00 98.7 70 16 168/92 97 Room Air 10/21/17 04:00 97 Room Air 10/21/17 00:00 97.7 77 16 146/85 98 Room Air 10/21/17 00:00 98 Room Air 10/20/17 20:00 97.9 94 18 158/88 99 Room Air 10/20/17 20:00 99 Room Air 10/20/17 18:47 97.6 92 18 115/69 100 Room Air 10/20/17 16:00 97.6 92 18 115/69 100 Room Air Intake and Output 10/20/17 10/21/17 19:00 07:00 Intake Total 480 ml 240 ml Balance 480 ml 240 ml Intake Oral 480 ml 240 ml # Voids 2 3 # Bowel Movements 1 Height (Feet): 6 Height (Inches): 0.00 Weight (Pounds): 180 Objective WDWN NAD clear breath sounds bilaterally without rhonchi or wheeze [id number] without MRG NABS nontender no HSM no CCE nonfocal more confused CLAUDIA FAULKNER Oct 21, 2017 15:11
[2017-10-21] MEDS ORDERED: TYLENOL650 MG/20. ORAL (16:20)
[2017-10-21] MEDS ORDERED: ASPIRIN EC81 MG ORAL (16:20)
[2017-10-21] MEDS ORDERED: NORVASC5 MG ORAL (16:20)
[2017-10-21] MEDS ORDERED: CATAPRES0.1 MG ORAL (16:21)
[2017-10-21] MEDS ORDERED: SEROQUEL25 MG ORAL (16:24)
--- NOTE | 2017-10-21 21:59 | General Progress Note ---
Assessment/Plan Assessment/Plan ASSESSMENT: [place] I Cognitive impairment. PLAN: The patient lacks capacity to make decisions. seroquel Subjective Date patient seen: Oct 20, 2017 Neurologic/Psychiatric: Reports: anxiety, depressed, emotional problems Allergies: Coded Allergies: No Known Allergies (Unverified , 10/16/17) Objective Last 24 Hour Vital Signs Date Time Temp Pulse Resp B/P (MAP) Pulse Ox O2 Delivery O2 Flow Rate FiO2 10/21/17 16:28 98.2 58 20 122/70 100 10/21/17 11:30 98.1 65 18 139/79 98 Room Air 10/21/17 10:01 98.6 78 18 109/63 98 Room Air 10/21/17 09:56 98.6 78 17 109/63 98 Room Air 10/21/17 09:45 98.6 78 18 109/63 98 Room Air 10/21/17 09:00 78 109/63 10/21/17 08:15 98.6 78 18 109/63 Room Air 10/21/17 06:49 168/92 10/21/17 04:00 98.7 70 16 168/92 97 Room Air 10/21/17 04:00 97 Room Air 10/21/17 00:00 97.7 77 16 146/85 98 Room Air 10/21/17 00:00 98 Room Air Intake and Output 10/20/17 10/21/17 19:00 07:00 Intake Total 480 ml 240 ml Balance 480 ml 240 ml Intake Oral 480 ml 240 ml # Voids 2 3 # Bowel Movements 1 Height (Feet): 6 Height (Inches): 0.00 Weight (Pounds): 180 General Appearance: no apparent distress, alert, confused, agitated Yovanny Jacobo M.D. Oct 21, 2017 21:59
--- NOTE | 2017-10-21 21:59 | General Progress Note ---
Assessment/Plan Status: stable Assessment/Plan ASSESSMENT: [place] I Cognitive impairment. [place] II Deferred. [place] III Head trauma. [place] IV Low. [place] V Global assessment of functioning is 20. PLAN: The patient lacks capacity to make decisions. seroquel Subjective Date patient seen: Oct 21, 2017 Neurologic/Psychiatric: Reports: anxiety, depressed, emotional problems Allergies: Coded Allergies: No Known Allergies (Unverified , 10/16/17) Objective Last 24 Hour Vital Signs Date Time Temp Pulse Resp B/P (MAP) Pulse Ox O2 Delivery O2 Flow Rate FiO2 10/21/17 16:28 98.2 58 20 122/70 100 10/21/17 11:30 98.1 65 18 139/79 98 Room Air 10/21/17 10:01 98.6 78 18 109/63 98 Room Air 10/21/17 09:56 98.6 78 17 109/63 98 Room Air 10/21/17 09:45 98.6 78 18 109/63 98 Room Air 10/21/17 09:00 78 109/63 10/21/17 08:15 98.6 78 18 109/63 Room Air 10/21/17 06:49 168/92 10/21/17 04:00 98.7 70 16 168/92 97 Room Air 10/21/17 04:00 97 Room Air 10/21/17 00:00 97.7 77 16 146/85 98 Room Air 10/21/17 00:00 98 Room Air Intake and Output 10/20/17 10/21/17 19:00 07:00 Intake Total 480 ml 240 ml Balance 480 ml 240 ml Intake Oral 480 ml 240 ml # Voids 2 3 # Bowel Movements 1 Height (Feet): 6 Height (Inches): 0.00 Weight (Pounds): 180 General Appearance: no apparent distress, confused, agitated Yovanny Jacobo M.D. Oct 21, 2017 21:59
--- NOTE | 2017-10-22 04:45 | Progress Note ---
DATE: 10/21/2017 CARDIOLOGY PROGRESS NOTE SUBJECTIVE: The patient is without complaints. No chest pain. No shortness of breath. Myocardial perfusion scan was normal two days ago. The patient had a head CT yesterday that was normal. OBJECTIVE: VITAL SIGNS: Blood pressure 139/79, pulse 65, and respirations 18. LUNGS: Clear. CARDIAC: Regular. Normal S1, S2. ABDOMEN: Soft. EXTREMITIES: No edema. NEUROLOGIC: Moderate confusion. No focality. IMPRESSION: 1. Dementia. 2. Confusion. 3. No signs of acute coronary insufficiency. 4. Chronic kidney disease. 5. Vasovagally mediated syncope. 6. Leukocytosis with no signs of obvious infection. PLAN: 1. Agree with rehabilitation at the alf facility. 2. Maintain anti-platelet therapy. 3. Maintain adequate hydration. 4. Empiric antibiotics. Papo Dillard M.D. DR: NOEMY JOB#: [id number] CC:
--- NOTE | 2017-10-22 17:47 | Discharge Summary ---
Discharge Summary Hospital Course Date of Admission Oct 16, 2017 at 13:00 Date of Discharge Oct 21, 2017 at 18:45 Admitting Diagnosis syncope MAR Moser is a 76 year old male who was admitted on Oct 16, 2017 at 13: 00 for Syncope Hospital Course [id number] Discharge Discharge Disposition Patient was discharged to SNF/Subacute Facility(03) Discharge Diagnoses: Sirisha Dior NP Oct 22, 2017 17:47
--- NOTE | 2017-10-23 02:15 | Discharge Summary 2 SIG ---
DATE OF ADMISSION: 10/16/2017 DATE OF DISCHARGE: 10/21/2017 CONSULTANTS: 1. Papo Dillard M.D. 2. Yoavnny Jacobo M.D. 3. Asher Anglin M.D. BRIEF HOSPITAL COURSE: The patient is a 76-year-old male who was brought in due to syncopal episode. The patient reportedly was walking. Next thing he remembered, he was lying on the ground. He complained of neck pain and headache. On evaluation at ED, troponin was elevated to 0.14. Head CT showed no acute disease. Chest x-ray showed no acute cardiopulmonary disease and EKG was in normal sinus rhythm with nonspecific ST to T-wave changes. He was then admitted for evaluation of syncope and elevated troponin. He underwent cardiac evaluation. Serial troponins were monitored. He had an echocardiogram done that showed EF estimated to be 60% to 65%. Test was technically difficult due to poor acoustic windows. Cervical spine CT showed no acute bony trauma with extensive degenerative changes seen. He was given anti-platelet therapy. Lipid panel checked. HDL was 91 and LDL 106. He underwent a Lexiscan, results were negative. The patient was confused with waxing and waning of consciousness. He was assessed to lack the capacity to make decisions and unsafe to be discharged back home. He was given Seroquel. He was supposed to be discharged on 10/20/2017, however, discharge was placed on hold as there was change in condition. The patient became more confused. Repeat head CT was done and showed mild atrophy of the brain. There was no acute intracranial bleed, mass effect, or edema. Syncope was vasovagally mediated. There was no sign of acute coronary insufficiency. He was given physical therapy and mobility and was eventually discharged to rehabilitation on . FINAL DIAGNOSES: 1. Syncope, unable to determine. 2. Chronic renal insufficiency. 3. Leukocytosis. 4. Concerning for underlying infection. 5. No signs of acute coronary insufficiency. 6. Chronic kidney disease. 7. Dementia. 8. Confusion. 9. Agitation. 10. Hypertension. 11. Status post blunt head trauma with cerebral concussion. 12. Dementia, confusion, and abnormal behavior. DISPOSITION: The patient was discharged to skilled nursing. DISCHARGE MEDICATIONS: Refer to medication list. Jorge Hammer M.D. I have been assigned to dictate discharge summary on this account and I was not involved in the patient's management. Sirisha Dior N.P. DR: Wilmer JOB#: [id number] CC: CHANI
--- NOTE | 2017-10-28 22:09 | Diagnostic Imaging Report ---
APPROVED REPORT CPT Code: 88620 Vascular Symptoms Syncope Doppler Spectral Velocity Analysis RightLeft BILATERAL: CCA/BULB - Imaging reveals irregular, minimal plaque in both carotid bulbs. arteries. The Doppler spectral flow analysis is minimal (10-15%) throughout the proximal internal and proximal external carotid arteries. VERTEBRALS - Imaging reveals both vertebral arteries to be patent, without evidence of stenosis or steal.
== END 2017-10-21 18:45 | DRG 312 ==
LOC: EDBD 11:53 → EMR 12:32 → 2E 13:00 → EDBEDREQ 13:41 → 4E 10-20 10:44
DX: R55 Syncope and collapse (principal); I13.10 Hypertensive heart and chronic kidney disease without heart failure, with stage 1 through stage 4 chronic kidney disease, or unspecified chronic kidney disease; F03.90 Unspecified dementia, unspecified severity, without behavioral disturbance, psychotic disturbance, mood disturbance, and anxiety; F05 Delirium due to known physiological condition; E87.1 Hypo-osmolality and hyponatremia; S06.0X0A Concussion without loss of consciousness, initial encounter; D72.819 Decreased white blood cell count, unspecified; F32.9 Major depressive disorder, single episode, unspecified; D72.829 Elevated white blood cell count, unspecified; E86.0 Dehydration; E86.1 Hypovolemia; N18.9 Chronic kidney disease, unspecified; I44.0 Atrioventricular block, first degree; M47.9 Spondylosis, unspecified; F41.9 Anxiety disorder, unspecified; R79.89 Other specified abnormal findings of blood chemistry; E83.42 Hypomagnesemia; X58.XXXA Exposure to other specified factors, initial encounter; Y92.89 Other specified places as the place of occurrence of the external cause
CPT/HCPCS: 36415; 70450; 71045; 72125; 78452; 80053; 80061; 81003; 82550; 82553; 82962; 83690; 83735; 84443; 84484; 85025; 87040; 93005; 93017; 93306; 93880; 99285; J2405; J2785